=== PATIENT | male | born 1985 | race Caucasian/White ===

== ENCOUNTER 2019-04-13 18:58 | Emergency (ER) | payer BC, SELFPAY ==
[2019-04-13 18:59] VITALS: BP 123/73; PULSE 87; RESP 18; TEMP 36.8; O2SAT 99; BMI 17.7
--- NOTE | 2019-04-13 19:16 | ED.DCSUM_ITS ---
- ER Visit Summary Date of Service: 04/13/19 Chief Complaint: Jaw pain and swelling status post root canal on Sunday History of Present Illness: The patient is a 33 M no sent past medical history. Patient had a root canal done on Sunday by an area dentist named Dr. Covington at [facility]. He was doing well said that he developed pain and swelling in the last 2 days. Physical Examination: Young male no acute distress. Vital signs stable afebrile. HEENT exam there is right upper jaw periapical abscess along the premolar on the right. It is fluctuant. It is draining. There is no trismus. No trouble swallowing or breathing. Minimal facial swelling on that side. Neck nontender no lymphadenopathy. Lungs clear to auscultation. Heart regular rhythm no murmur. Abdomen soft nontender. Otherwise exam unremarkable. Test Results: None Emergency Department Course and Treatment: Area was locally anesthetized with Xylocaine. A medial incision to express the pus. Patient was given [place] here for pain and started on Pen-Vee K. Treatment Plan: Pen-Vee K 4 times daily for 10 days. Tylenol Motrin for pain. Follow-up with his dentist tomorrow. Disposition: Discharge Impression: Dental abscess status post right upper dental root canal Incision and drainage by ER This note was generated with [employer] dictation software. It may contain incorrect words, spelling, and punctuation that were not noted in review of the chart prior to signing ED Disposition - Plan for ED Patient: Referrals: NOT,DEFINED [Primary Care Provider] -
--- NOTE | 2019-04-13 19:19 | ED.DEP ---
ED Disposition - Plan for ED Patient: Disposition: Home or Assisted Living Instructions: Dental Abscess Prescriptions: Hydrocodone/Acetaminophen [[place] 10-325 Tablet] 1 ea PO 4X/DAY PRN PRN #10 tab PRN Reason: Pain Prescription Printed Penicillin Vk [Pen-Vee K , V-Cillin K] 500 mg PO 4X/DAY #40 tab Prescription Printed Additional Instructions: Call and follow-up with your dentist tomorrow. Motrin for pain and swelling limited [place] for more severe pain. Warm salt water gargling 4 times a day. Penicillin 1 pill 4 times a day till gone.
[2019-04-13] MEDS: Penicillin Vk 250 MG Tablet 500 MG PO (19:27)
[2019-04-13] MEDS: HYDROcodone Bitartrate/Apap 5/325 Tablet PO (19:30)
[2019-04-13 19:52] VITALS: BP 134/78; PULSE 87; O2SAT 99
--- NOTE | 2019-04-13 19:52 | ED.RN ---
PATIENT WAS SHAKY AFTER THE DRAINING OF HIS ABSCESS. APPLE JUICE WAS GIVEN AND THEN HE CALLED ME TO THE ROOM WHEN HE FELT BETTER. PATIENT WANTED PRESCRIPTIONS FILLED HERE SO I SENT THEM DOWN TO THE PHARMACY.
--- NOTE | 2019-04-13 20:16 | ED.DEP ---
ED Disposition - Plan for ED Patient: Disposition: Home or Assisted Living Instructions: Dental Abscess Prescriptions: Hydrocodone/Acetaminophen [[place] 10-325 Tablet] 1 ea PO 4X/DAY PRN PRN #10 tab PRN Reason: Pain Prescription Printed Hydrocodone/Acetaminophen [[place] 5-325 Tablet] 1 ea PO 4X/DAY PRN PRN 5 Days #14 tab PRN Reason: Pain Prescription Printed Penicillin Vk [Pen-Vee K , V-Cillin K] 500 mg PO 4X/DAY #40 tab Prescription Printed Additional Instructions: Call and follow-up with your dentist tomorrow. Motrin for pain and swelling limited [place] for more severe pain. Warm salt water gargling 4 times a day. Penicillin 1 pill 4 times a day till gone.
== END 2019-04-13 19:53 | disposition home or self-care (01) ==
LOC: ED 19:25
PROVIDERS: Emergency Provider Emergency Medicine
DX: K04.7 Periapical abscess without sinus (principal); Z98.818 Other dental procedure status; Z72.0 Tobacco use
CPT/HCPCS: 41800; 99283